=== PATIENT | male | born 1985 | race Caucasian/White ===

== ENCOUNTER 2024-12-08 12:59 | Emergency (ER) | payer BC, MEDICAID ==
[~2024-12-08] VITALS: Ht 180.3 cm; Wt 81.6 kg
[2024-12-08] MEDS: LIDOCAINE HCL 1% 20 ML VIAL TP ONE (14:45)
[2024-12-08] MEDS ORDERED: TDAP DIPH,PERTUSS,TET VAC/PF 0.5 ML DISP.SYRIN IM ONE (14:46)
[2024-12-08] MEDS: TDAP DIPH,PERTUSS,TET VAC/PF 0.5 ML DISP.SYRIN IM ONE (14:52)
[2024-12-08] MEDS ORDERED: NEOMY/BACITRA/POLYMYXIN B OINT UD PACKET TP ONE (17:09)
[2024-12-08] MEDS ORDERED: HYDROCODONE/APAP 5-325MG TABLET ONE (17:25)
[2024-12-08] MEDS ORDERED: CEphaleXIN 250 MG CAPSULE ONE (17:25)
[2024-12-08] MEDS ORDERED: CEPH500C2 PO (17:27)
[2024-12-08] MEDS ORDERED: HYDR-3972 PO (17:27)
[2024-12-08] MEDS: CEphaleXIN 500 MG CAPSULE PO ONE (17:28)
[2024-12-08] MEDS: HYDROCODONE/APAP 5-325MG TABLET PO ONE (17:28)
[2024-12-08] MEDS: NEOMY/BACITRA/POLYMYXIN B OINT UD PACKET TP ONE (18:41)
[2024-12-08 19:23] VITALS: BP 123/76; TEMP 98.4; O2SAT 98
== END 2024-12-08 18:00 | disposition home or self-care (01) ==
LOC: ER 12:59
DX: M25.571 Pain in right ankle and joints of right foot (principal); W45.8XXA Other foreign body or object entering through skin, initial encounter; Y93.89 Activity, other specified; Y92.89 Other specified places as the place of occurrence of the external cause; Y99.8 Other external cause status
CPT/HCPCS: 73600; 90715; A4606; A4663